=== PATIENT | female | born 1940 | race Caucasian/White ===

== ENCOUNTER 2016-09-19 13:35 | Emergency (ER) | payer MEDICARE, BC ==
--- NOTE | 2016-09-19 15:45 | RAD ---
INDICATION: Left knee injury COMPARISON: None TECHNIQUE: AP, lateral, and oblique views were obtained. FINDINGS: There are no acute osseous findings. There is prominent prepatellar soft tissue swelling and there is a moderate-sized joint effusion. 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 No additional findings. IMPRESSION: SOFT TISSUE INJURY ANTERIOR KNEE. JOINT EFFUSION.
[2016-09-19 16:18] VITALS: BP 107/61
--- NOTE | 2016-09-19 16:27 | ED ---
Lower Extremity - HPI Summary HPI Summary: Patient presents with left anterior knee pain s/p mechanical fall 5 hours ago. She notes to some swelling, but denies numbness, tingling, temperature or color changes to the area. She is ambulating well, but with pain. Pain is 5/10, worse with ambulation, better with rest. She notes to some radiation of pain intermittently down the leg, but this is infrequent. She denies hip pain or ankle pain in the ipsilateral side, but notes to hip replacement last year. She denies blood thinners and is otherwise healthy. She denies hitting her head , LOC or other symptoms. Patient has a follow up with her hip ortho MD in 2 weeks in [place]. - History of Current Complaint Chief Complaint: EDExtremityLower Stated Complaint: LT KNEE PAIN Time Seen by Provider: 09/19/16 14:32 Hx Obtained From: Patient Mechanism Of Injury: Direct Blow Onset of Pain: Immediate Onset/Duration: Hours Severity Initially: Moderate Severity Currently: Moderate Pain Intensity: 2 Pain Scale Used: 0-10 Numeric Timing: Constant Location: Is Discrete @ - anterior knee pain Character Of Pain: Aching Associated Signs And Symptoms: Positive: Swelling Aggravating Factor(s): Standing, Ambulation Alleviating Factor(s): Rest Able to Bear Weight: Yes - Risk Factors Gout Risk Factors: Age Over 40 DVT Risk Factors: Negative Septic Arthritis Risk Factor: Negative - Allergies/Home Medications Allergies/Adverse Reactions: Allergies Allergy/AdvReac Type Severity Reaction Status Date / Time No Known Allergies Allergy Verified 09/19/16 13:38 PMH/Surg Hx/FS Hx/Imm Hx Previously Healthy: Yes - Surgical History Surgery Procedure, Year, and Place: Hysterectomy. ovarian cyst - Immunization History Hx Pertussis Vaccination: No Immunizations Up to Date: Unable to Obtain/Confirm Infectious Disease History: No Infectious Disease History: Reports: Hx Hepatitis Denies: Hx Clostridium Difficile, Hx Human Immunodeficiency Virus (HIV), Hx of Known/Suspected MRSA, Hx Shingles, Hx Tuberculosis, Hx Known/Suspected VRE, Hx Known/Suspected VRSA, History Other Infectious Disease, Traveled Outside the [place] in Last 30 Days - Social History Occupation: Unemployed Lives: With Family Alcohol Use: None Hx Substance Use: No Substance Use Type: Reports: None Hx Tobacco Use: No Smoking Status (MU): Never Smoked Tobacco Have You Smoked in the Last Year: No Review of Systems Constitutional: Negative Positive: Photophobia Positive: Palpitations Respiratory: Negative Positive: no symptoms reported, see HPI Positive: Arthralgia, Myalgia Skin: Negative Neurological: Negative All Other Systems Reviewed And Are Negative: Yes Physical Exam - Summary Physical Exam Summary: Thorough physical exam was performed, focusing on knee special tests. Pain on palpation over lateral aspect and superior aspect of knee with moderate amount of effusion. Due to patient pain around injury, physical exam was limited. Valgus and varus force without pain. No posterior sag sign, -posterior drawer test, - anterior drawer test. Quadriceps active test negative. Mcmurrys test not performed d/t patients instability. No laxity in the joint noted. No temperature change or pallor noted bilaterally. No ecchymosis noted over knee. No lesion or disruption of skin is seen. Able to bear weight. Pulses intact bilaterally. Anterolateral knee effusion. Triage Information Reviewed: Yes Vital Signs On Initial Exam: Initial Vitals Temp Pulse Resp BP Pulse Ox 97.4 F 102 14 114/65 98 09/19/16 13:38 09/19/16 13:38 09/19/16 13:38 09/19/16 13:38 09/19/16 13:38 Vital Signs Reviewed: Yes Appearance: Positive: Well-Appearing, Well-Nourished Skin: Positive: Warm, Skin Color Reflects Adequate Perfusion Head/Face: Positive: Normal Head/Face Inspection Eyes: Positive: EOMI, MACKENZIE, Conjunctiva Clear Neck: Positive: Supple, No Lymphadenopathy Respiratory/Lung Sounds: Positive: Clear to Auscultation, Breath Sounds Present Cardiovascular: Positive: Normal, RRR, Pulses are Symmetrical in both Upper and Lower Extremities Neurological: Positive: Sensory/Motor Intact Psychiatric: Positive: Normal AVPU Assessment: Alert Diagnostics - Vital Signs Vital Signs Temp Pulse Resp BP Pulse Ox 09/19/16 16:18 97.4 F 96 14 107/61 09/19/16 14:40 97.4 F 102 14 114/65 99 09/19/16 13:38 97.4 F 102 14 114/65 98 - Laboratory Lab Statement: Any lab studies that have been ordered have been reviewed, and results considered in the medical decision making process. Lower Extremity Course/Dx - Course Course Of Treatment: Patient sent to imaging. Xray negative for fracture. FINDINGS: There are no acute osseous findings. There is prominent prepatellar soft tissue. swelling and there is a moderate-sized joint effusion. There is minor patellofemoral. osteoarthritis. No additional findings. IMPRESSION: SOFT TISSUE INJURY ANTERIOR KNEE. JOINT EFFUSION.Soft tissue swelling noted over the knee. Knee was tray wrapped to patient comfort to allow for immobilization for this period of time. Patient given orthopedic follow up in 5 -7 days, however she has ortho MD in [place] which she is following up with in 2 weeks for hip pain/repair. Encouraged Ibuprofen 600mg three times daily with meals for pain. Return precautions given. Educated patient regarding knee injuries and healing time and the possibility of further evaluation and imaging as orthopedist sees fit. - Diagnoses Differential Diagnosis/HQI/PQRI: Positive: Contusion, Fracture (Closed), Sprain , Strain Provider Diagnoses: Effusion of left knee joint Discharge - Discharge Plan Condition: Stable Disposition: HOME Patient Education Materials: Swollen Knee Joint (ED) Referrals: Alexey Whitney MD [Primary Care Provider] - Lukasz Gibson MD [Medical Doctor] - Additional Instructions: Follow up with your ortho physician, I have also given you a referral to our ortho Ibuprofen 600mg three times daily with meals for pain. If numbness, tingling, decreased sensation, increased pain, temperature changes or pallor noted in toes, come back to ER immediately. Protect the area. For your comfort level, do not bear weight, pull or push until you can injury is somewhat healed. This may involve the need for immobilization or crutches for a period of time. Rest the involved area, but not too long. You may need to be off your injury for some time to allow for healing, however excessive immobilization of joints can lead to stiffness and delay healing time. Early mobilization is encouraged if it is pain-free. Ice. Not directly on the skin. Cover with a towel. Apply ice no more than 30 minutes at a time Compression: You may use and keep an tray wrap bandage over the injury to decrease swelling. Again, this should be limited and be taken off periodically to encourage early range of motion and mobilization. Elevate: Try to elevate the injured area above the heart whenever possible.
== END 2016-09-19 16:27 | disposition home or self-care (01) ==
LOC: ED 13:35
DX: M25.462 Effusion, left knee (principal); H53.149 Visual discomfort, unspecified; R00.2 Palpitations
CPT/HCPCS: 99282

== ENCOUNTER 2021-04-14 08:27 | Inpatient (IN) ==
[2021-04-14 09:31] LABS: ABS Eosinophils 0.1 10^3/ul (0-0.6); ABS Lymphocytes 0.8 10^3/ul (1.0-4.8); ABS Monocytes 0.4 10^3/ul (0-0.8); Eosinophil % 0.6 %; Hematocrit 44 % (35-47); Hemoglobin 14.8 g/dL (12.0-16.0); Lymphocyte % 9.8 %; Mean Corpuscular HGB Conc 33 g/dL (31-36); Mean Corpuscular Hemoglobin 31 pg (27-31); Mean Corpuscular Volume 92 fL (80-97); Mean Platelet Volume 6.9 fL (7.4-10.4); Platelet Count 243 10^3/uL (150-450); Red Blood Count 4.84 10^6 /uL (3.70-4.87); Red Cell Distribution Width 15 % (10-15); White Blood Count 8.3 10^3/uL (3.5-10.8)
[2021-04-14 09:52] LABS: ALT 28 U/L (7-52); AST 26 U/L (13-39); Albumin 4.2 g/dL (3.2-5.2); Albumin/Globulin Ratio 1.7 (1-3); Alkaline Phosphatase 81 U/L (35-149); Anion Gap 6 mmol/L (2-11); Blood Urea Nitrogen 13 mg/dL (6-24); C Reactive Protein < 1.00 mg/L (<8.01); CO2 Carbon Dioxide 28 mmol/L (22-32); Calcium 9.6 mg/dL (8.6-10.3); Chloride 106 mmol/L (101-111); Globulin 2.5 g/dL (2-4); Glucose 90 mg/dL (70-100); Potassium 4.1 mmol/L (3.5-5.0); Sodium 140 mmol/L (135-145); Total Protein 6.7 g/dL (6.4-8.9); eGFR CKD-EPI 89.4 (>60)
[2021-04-14] MEDS ORDERED: Iohexol 350 (CONTRAST) 500 ML MDV IV ONE (11:16)
[2021-04-14 12:54] LABS: Troponin I 0.09 ng/mL (<0.03)
[2021-04-14] MEDS ORDERED: Carbidopa/Levodop CR 50/200 TAB.CR PO SCH ×2 (15:00→21:00)
[2021-04-14 15:15] LABS: Lipase 33 U/L (11.0-82.0)
[2021-04-14 15:39] LABS: Creatine Kinase 166 U/L (10-223)
[2021-04-14] MEDS: Lidocaine PATCH 5% PATCH TRANSDERM SCH (15:47)
[2021-04-14] MEDS: Enoxaparin 40 MG/0.4 ML SYR SUBCUT SCH (15:47)
[2021-04-14 16:23] LABS: Rapid COVID-19 Molecular Undetected (Undetected)
[2021-04-14 17:31] LABS: TSH Ultra Thyroid Stim Horm 0.63 mcIU/mL (0.34-5.60)
[2021-04-14] MEDS: Carbidopa/Levodopa ER 25/100 TABLET.ER PO SCH ×2 (21:00→22:00)
[2021-04-14] MEDS: PTO: Carbidopa/Levodopa ER 25/100 TABLET.ER PO SCH (22:00)
[2021-04-15 06:47] LABS: Hematocrit 41 % (35-47); Mean Corpuscular HGB Conc 34 g/dL (31-36); Mean Corpuscular Hemoglobin 31 pg (27-31); Mean Corpuscular Volume 92 fL (80-97); Platelet Count 234 10^3/uL (150-450); Red Blood Count 4.51 10^6 /uL (3.70-4.87); Red Cell Distribution Width 15 % (10-15); White Blood Count 5.1 10^3/uL (3.5-10.8)
[2021-04-15 07:08] LABS: Potassium 3.8 mmol/L (3.5-5.0); eGFR CKD-EPI 90.7 (>60)
[2021-04-15] MEDS: Carbidopa/Levodopa ER 25/100 TABLET.ER PO SCH ×4 (08:46→22:23)
[2021-04-15] MEDS: Lidocaine PATCH 5% PATCH TRANSDERM SCH (09:38)
[2021-04-15] MEDS: Enoxaparin 40 MG/0.4 ML SYR SUBCUT SCH (16:38)
[2021-04-15] MEDS: PTO: Carbidopa/Levodopa ER 25/100 TABLET.ER PO SCH (22:23)
[2021-04-16] MEDS: Carbidopa/Levodopa ER 25/100 TABLET.ER PO SCH ×3 (07:43→15:02)
[2021-04-16] MEDS: Lidocaine PATCH 5% PATCH TRANSDERM SCH (07:44)
[2021-04-16] MEDS ORDERED: Regadenoson 0.4 MG/5 ML SYRINGE ONE (14:06)
[2021-04-16] MEDS: Enoxaparin 40 MG/0.4 ML SYR SUBCUT SCH (15:03)
[2021-04-16 16:47] VITALS: BP 128/69
== END 2021-04-16 19:45 | disposition home or self-care (01) | DRG 313 ==
LOC: ED 08:27 → EDHOLD 15:30 → SUATTDRO 15:30 → MED 19:15
PROVIDERS: ADMIT Student in an Organized Health Care Education/Training Program; ATTEND Hospitalist

== ENCOUNTER 2024-03-24 01:27 | Observation (INO) ==
[2024-03-24 02:59] LABS: ABS Lymphocytes 0.3 10^3/uL (1.0-4.8); ABS Monocytes 0.1 10^3/uL (0.0-0.9); ABS Neutrophils 4.5 10^3/uL (1.5-7.6); Hematocrit 34.4 % (35-45); Hemoglobin 11.8 g/dL (11.5-14.3); Lymphocyte % 6.1 %; Mean Corpuscular Hemoglobin 31.3 pg (27-33); Mean Corpuscular Hgb Conc 34.2 g/dL (31-36); Mean Corpuscular Volume 91.5 fL (80-97); Mean Platelet Volume 6.5 fL (7.5-11.2); Nucleated Red Blood Cells % 0.1 %/100WBC (0.0-0.8); Platelet Count 237 10^3/uL (150-450); Red Blood Count 3.76 10^6/uL (3.63-4.92); Red Cell Distribution Width 14.2 % (12-17)
[2024-03-24 03:34] LABS: Calcium 7.9 mg/dL (8.6-10.3); Creatinine, Serum 0.6 mg/dL (0.51-0.95); Potassium 4.7 mmol/L (3.5-5.0); eGFR CKD-EPI 90.1 (>60)
[2024-03-24 03:59] LABS: Albumin/Globulin Ratio 1.5 (1-3); Total Bilirubin 0.3 mg/dL (0.2-1.0)
[2024-03-24] MEDS ORDERED: Sulfur Hexaflouride MICROSPHR 25 MG VIAL IV PRN (04:14)
[2024-03-24 04:30] LABS: High Sensitivity Troponin 1 Hr 115 pg/mL (<15)
[2024-03-24] MEDS: Lactated Ringers 1000 ml BAG 1,000 ML IV SCH ×3 (05:20→09:34)
[2024-03-24 06:09] LABS: ABS Lymphocytes 0.6 10^3/uL (1.0-4.8); ABS Monocytes 0.2 10^3/uL (0.0-0.9); ABS Neutrophils 4.5 10^3/uL (1.5-7.6); ABS Nucleated RBC 0.01 10^3/ul; Hematocrit 38.8 % (35-45); Hemoglobin 13.2 g/dL (11.5-14.3); Lymphocyte % 11.2 %; Mean Corpuscular Hemoglobin 31.5 pg (27-33); Mean Corpuscular Volume 92.5 fL (80-97); Mean Platelet Volume 6.6 fL (7.5-11.2); Nucleated Red Blood Cells % 0.1 %/100WBC (0.0-0.8); Platelet Count 239 10^3/uL (150-450); Red Blood Count 4.19 10^6/uL (3.63-4.92); Red Cell Distribution Width 14.1 % (12-17); White Blood Count 5.2 10^3/uL (3.8-11.8)
[2024-03-24 06:38] LABS: Blood Urea Nitrogen 17 mg/dL (6-24); CO2 Carbon Dioxide 25 mmol/L (22-32); Calcium 8.4 mg/dL (8.6-10.3); Chloride 111 mmol/L (101-111); Glucose 126 mg/dL (70-100); Phosphorus 4.2 mg/dL (2.5-5.0); Potassium 4.7 mmol/L (3.5-5.0); Sodium 134 mmol/L (135-145); eGFR CKD-EPI 90.1 (>60)
[2024-03-24] MEDS: Aspirin EC 81 mg TAB.EC (enteric coated) PO SCH (09:32)
[2024-03-24] MEDS: Carbidopa/Levodop CR 50/200 TAB.CR PO SCH (09:33)
[2024-03-24] MEDS: Carbidopa/Levodop 25/100 MG TAB PO SCH ×2 (09:33→21:45)
[2024-03-24 14:57] LABS: Urine Appearance Clear; Urine Bilirubin Negative (Negative); Urine Blood Negative (Negative); Urine Color Light-Yellow; Urine Glucose Negative (Negative); Urine Ketones Negative (Negative); Urine Nitrite Negative (Negative); Urine Protein Negative (Negative); Urine Specific Gravity 1.009 (1.002-1.030); Urine Urobilinogen Negative (Negative); Urine pH 6.5 (5.0-8.0)
[2024-03-25 08:57] LABS: ABS Eosinophils 0.1 10^3/uL (0.0-0.5); ABS Lymphocytes 1.3 10^3/uL (1.0-4.8); ABS Monocytes 0.5 10^3/uL (0.0-0.9); ABS Neutrophils 2.7 10^3/uL (1.5-7.6); Eosinophil % 1.1 %; Hematocrit 43.3 % (35-45); Hemoglobin 14.7 g/dL (11.5-14.3); Lymphocyte % 27.8 %; Mean Corpuscular Hemoglobin 31.1 pg (27-33); Mean Corpuscular Volume 91.4 fL (80-97); Mean Platelet Volume 6.6 fL (7.5-11.2); Nucleated Red Blood Cells % 0.1 %/100WBC (0.0-0.8); Platelet Count 253 10^3/uL (150-450); Red Blood Count 4.74 10^6/uL (3.63-4.92); Red Cell Distribution Width 14.4 % (12-17); White Blood Count 4.5 10^3/uL (3.8-11.8)
[2024-03-25] MEDS: Polyethylene Glycol 3350 17 GM PACKET PO SCH (09:00)
[2024-03-25 09:30] VITALS: BP 108/62
[2024-03-25 09:46] LABS: Calcium 8.6 mg/dL (8.6-10.3); Creatinine, Serum 0.52 mg/dL (0.51-0.95); Potassium 4.4 mmol/L (3.5-5.0); eGFR CKD-EPI 93.3 (>60)
[2024-03-25] MEDS ORDERED: Senna TAB 8.6 mg TAB PO SCH (21:00)
== END 2024-03-25 12:55 ==
LOC: ED 01:27 → EDHOLD 01:27 → SUATTDRO 02:55 → MEDTELE 04:29
PROVIDERS: ADMIT Internal Medicine; ATTEND Internal Medicine